=== PATIENT | female | born 1995 | race Caucasian/White ===

== ENCOUNTER 2019-01-18 23:41 | Emergency (ER) | payer OTHER ==
[2019-01-19 01:42] VITALS: BP 129/94
== END 2019-01-19 04:00 | disposition left against medical advice (07) ==
LOC: ER 23:41
DX: Z53.21 Procedure and treatment not carried out due to patient leaving prior to being seen by health care provider (principal)

== ENCOUNTER 2019-09-18 10:06 | Emergency (ER) | payer SELFPAY ==
[2019-09-18] MEDS ORDERED: IPRATROPIUM/ALBUTEROL 0.5-2.5 MG/3 ML AMPUL NEB ONE (11:07)
[2019-09-18] MEDS ORDERED: ACETAMINOPHEN 325 MG TABLET PO ONE (11:07)
--- NOTE | 2019-09-18 11:12 | ER Document Report ---
HPI - HPI Patient complains to provider of: cough fever body aches sore throat Time Seen by Provider: 09/18/19 11:03 Onset: Yesterday Onset/Duration: Sudden Pain Level: 3 Context: 23-year-old female with history of asthma presents emergency department with complaints of cough that started last night. Low-grade fever. Reports body aches sore throat. Reports her father recently returned from [place] and was diagnosed with the flu. She denies flu vaccine this year. Complains she feels a little bit of nausea from her coughing and draining down her throat. Reports she has been hospitalized for asthma in the past but never intubated. She reports she utilized her inhaler prior to arrival did not help.. denies vomiting diarrhea. Associated Symptoms: Body/muscle aches, Nonproductive cough, Fever, Sore throat Exacerbated by: Denies Relieved by: Denies Similar symptoms previously: Yes Recently seen / treated by doctor: No - REPRODUCTIVE Reproductive: DENIES: : Past Medical History - General Information source: Patient Last Menstrual Period: last week - Social History Smoking Status: Current Every Day Smoker Cigarette use (# per day): Yes Chew tobacco use (# tins/day): No Frequency of alcohol use: Occasional Drug Abuse: None Lives with: Family Family History: Reviewed & Not Pertinent Patient has suicidal ideation: No Patient has homicidal ideation: No Pulmonary Medical History: Reports: Hx Asthma GI Medical History: Reports: Hx Gastroesophageal Reflux Disease Past Surgical History: Reports: Hx Cholecystectomy Vertical Provider Document - CONSTITUTIONAL Agree With Documented VS: Yes Exam Limitations: No Limitations General Appearance: WD/WN, No Apparent Distress - INFECTION CONTROL TRAVEL OUTSIDE OF THE [place] IN LAST 30 DAYS: No - HEENT HEENT: Atraumatic, Normocephalic, Pharyngeal Erythema - tonsillar exudate good airway, clear voice, opens mouth wide, no trismus. negative: Conjuctival Injection, Pharyngeal Exudate, Tympanic Membrane Red - NECK Neck: Normal Inspection, Supple. negative: Lymphadenopathy-Left, Lymphadenopathy-Right - RESPIRATORY Respiratory: No Respiratory Distress - Tachypneic. negative: Wheezing - CARDIOVASCULAR Cardiovascular: Regular Rhythm, Tachycardia - GI/ABDOMEN Gastrointestinal: Abdomen Soft, Abdomen Non-Tender - BACK Back: Normal Inspection - MUSCULOSKELETAL/EXTREMETIES Musculoskeletal/Extremeties: ELSI HUYNH - NEURO Level of Consciousness: Awake, Alert, Appropriate Motor/Sensory: No Motor Deficit - DERM Integumentary: Warm, Dry, No Rash Course - Re-evaluation Re-evalutation: 09/18/19 12:22 Chest X-Ray 09/18/19 11:07 IMPRESSION: NO ACUTE RADIOGRAPHIC FINDING IN THE CHEST. Laboratory 09/18/19 09/18/19 11:09 11:09 Influenza A (Rapid) NEGATIVE Influenza B (Rapid) NEGATIVE Group A Strep Rapid NEGATIVE 09/18/19 12:22 This 23-year-old female with history of asthma presents to the emergency department with complaints of difficulty breathing history of asthma. She did use her inhaler letter prior to arrival but it did not help her. Patient is tachypneic upon arrival with no wheezes no rhonchi noted. O2 sat 100%. Patient received a DuoNeb and reported she feels a little bit better but her chest was hurting her. EKG ordered. Patient reports body aches sore throat. Pt reports recent exposure to the flu. Denies recent trip, reports her father just returned from [place] with the flu. Patients influenza and strep negative throat culture pending. Chest x-ray negative 09/18/19 Patient treated with steroid injection for tonsillar hypertrophy. Patient has c lear voice respiratory rate even unlabored. instructed to monitor symptoms push fluids ibuprofen as indicated return for concerns. She verbalized understanding to all instructions - Vital Signs Vital signs: Temp Pulse Resp BP Pulse Ox 100.4 F 103 H 28 H 143/82 H 98 09/18/19 10:12 09/18/19 10:12 09/18/19 10:12 09/18/19 10:12 09/18/19 10:12 - Diagnostic Test Radiology reviewed: Image reviewed, Reports reviewed - EKG Interpretation by Ma EKG shows normal: Sinus rhythm Rate: Normal Rhythm: NSR Additional EKG results interpreted by me: 09/18/19 12:[address] elevation no T wave inversion Discharge - Discharge Clinical Impression: Sore throat, Cough, History of asthma, Body aches Condition: Stable Disposition: HOME, SELF-CARE Instructions: Bronchodilators ([facility]), Sore Throat ([facility]), Steroid Medication Injection Additional Instructions: *You have been evaluated for a sore throat, cough, body aches *Your influenza and strep test were negative. A throat culture is pending. You may be contacted in 3 to 4 days should you need antibiotics *In the meantime gargle with warm salt water and suck on throat lozenges for comfort. *Push fluids *Monitor your temperature take Tylenol or Motrin as indicated *Do not let anyone drink/eat after you *Good hand washing *Follow-up with a primary care provider within 1 week for recheck *Return to ED for worsening condition change, needs, difficulty breathing, concerns Forms: Elevated Blood Pressure, Smoking Cessation Education Referrals: ARDEN VEGA MD [Primary Care Provider] - Follow up in 3-5 days
[2019-09-18] MEDS ORDERED: ONDANSETRON 4 MG TAB.RAPDIS PO ONE (11:15)
[2019-09-18 11:56] LABS: A TYPE INFLUENZA AG NEGATIVE (NEGATIVE); B INFLUENZA AG NEGATIVE (NEGATIVE)
--- NOTE | 2019-09-18 12:14 | RADIOLOGY REPORT (SQ) ---
EXAM DESCRIPTION: CHEST 2 VIEWS COMPLETED DATE/TIME: 09/18/2019 11:45 am REASON FOR STUDY: cough fever COMPARISON: Two-view chest 05/17/2015 EXAM PARAMETERS: NUMBER OF VIEWS: two views TECHNIQUE: Digital Frontal and Lateral radiographic views of the chest acquired. RADIATION DOSE: NA LIMITATIONS: none FINDINGS: LUNGS AND PLEURA: No opacities, masses or pneumothorax. No pleural effusion. MEDIASTINUM AND HILAR STRUCTURES: No masses or contour abnormalities. HEART AND VASCULAR STRUCTURES: Heart normal size. No evidence for failure. BONES: No acute findings. HARDWARE: Clips right upper quadrant post cholecystectomy OTHER: No other significant finding. IMPRESSION: NO ACUTE RADIOGRAPHIC FINDING IN THE CHEST. TECHNICAL DOCUMENTATION: JOB ID: [id number] 2010 [employer]- All Rights Reserved Reading location - IP/workstation name: [email or web address]
[2019-09-18] MEDS ORDERED: DEXAMETHASONE SOD PHOS INJ 10 MG/1 ML VIAL IM ONE (12:38)
[2019-09-18] MEDS ORDERED: ALBUTEROL SULFATE HFA (90 MCG/PUFF) 8 GM MDI (1 MDI/ER DISP) IH ONE (12:39)
[2019-09-18 13:05] VITALS: BP 115/66
[2019-09-18] MEDS ORDERED: IBUPROFEN 800 MG TABLET PO ONE (13:05)
--- NOTE | 2019-09-18 18:47 | EKG REPORT ---
SEVERITY:- BORDERLINE ECG - SINUS RHYTHM BORDERLINE T WAVE ABNORMALITIES : Confirmed by: Robin Peralta 18-Sep-2019 18:46:24
== END 2019-09-18 13:10 | disposition home or self-care (01) ==
LOC: ER 10:06
DX: J02.9 Acute pharyngitis, unspecified (principal); R05 Cough; M79.10 Myalgia, unspecified site; R50.9 Fever, unspecified; F17.210 Nicotine dependence, cigarettes, uncomplicated; J45.909 Unspecified asthma, uncomplicated; Z90.49 Acquired absence of other specified parts of digestive tract
CPT/HCPCS: 93005; 87070; 87880; 87804; 71046; 93010; S0119; J1100; J3490; J7620; 94640; 96372; 99285